=== PATIENT | male | born 1950 | race Caucasian/White ===

== ENCOUNTER 2020-10-24 18:27 | Emergency (ER) | payer MEDICARE, OTHER ==
[2020-10-24 21:45] LABS: HEMOGLOBIN 13.5 gm/dl (14.0-17.5); RED BLOOD COUNT 4.56 M/UL (4.20-5.50); WHITE BLOOD COUNT 9.5 K/UL (4.5-11.0)
[2020-10-25] MEDS ORDERED: DULCOLAX5 MG PO (00:45)
[2020-10-25] MEDS ORDERED: MIRALAX 119 GR119 GM PO (00:45)
[2020-10-25] MEDS ORDERED: CEFUROXIME500 MG PO (00:49)
== END 2020-10-25 02:17 | disposition home or self-care (01) ==
LOC: ER1 18:27
PROVIDERS: Physician Assistant
DX: N39.0 Urinary tract infection, site not specified (principal); K59.00 Constipation, unspecified; E11.9 Type 2 diabetes mellitus without complications; I10 Essential (primary) hypertension; K62.89 Other specified diseases of anus and rectum
CPT/HCPCS: 74018; 80053; 81001; 83690; 85025; 93005; 99284

== ENCOUNTER 2022-02-15 17:32 | Inpatient (IN) | payer MEDICARE, OTHER ==
[~2022-02-15] VITALS: Ht 167.6 cm; Wt 80.3 kg
[~2022-02-15 17:32] MED LIST: CEFUROXIME500 MG PO; DULCOLAX5 MG PO; MIRALAX 119 GR119 GM PO
[2022-02-15 19:03] LABS: HEMOGLOBIN 14.1 gm/dl (14.0-17.5); RED BLOOD COUNT 4.61 M/UL (4.20-5.50); WHITE BLOOD COUNT 7.5 K/UL (4.5-11.0)
[2022-02-15 19:24] LABS: BUN/CREATININE RATIO 23 (0-10)
[2022-02-16 05:19] LABS: HEMOGLOBIN 13.7 gm/dl (14.0-17.5); RED BLOOD COUNT 4.49 M/UL (4.20-5.50)
[2022-02-16 05:38] LABS: BUN/CREATININE RATIO 23 (0-10)
[2022-02-16] MEDS ORDERED: LEVOTHYROXINE100 MCG PO (09:53)
[2022-02-16] MEDS ORDERED: VITAMIN B-121000 MCG PO (09:53)
[2022-02-16] MEDS ORDERED: FARXIGA10 MG PO (09:53)
[2022-02-16] MEDS ORDERED: LORATADINE10 MG PO (09:54)
[2022-02-16] MEDS ORDERED: METFORMIN HCL500 MG PO (09:55)
[2022-02-17 05:33] LABS: HEMOGLOBIN 12.4 gm/dl (14.0-17.5); WHITE BLOOD COUNT 9.2 K/UL (4.5-11.0)
[2022-02-17 05:37] LABS: RED BLOOD COUNT 4.02 M/UL (4.20-5.50)
[2022-02-17 06:03] LABS: BUN/CREATININE RATIO 26 (0-10)
[2022-02-17 12:27] LABS: HEMOGLOBIN 13.1 gm/dl (14.0-17.5); RED BLOOD COUNT 4.22 M/UL (4.20-5.50); WHITE BLOOD COUNT 12.5 K/UL (4.5-11.0)
[2022-02-17 12:50] LABS: BUN/CREATININE RATIO 30 (0-10)
[2022-02-18 05:23] LABS: HEMOGLOBIN 11.6 gm/dl (14.0-17.5); RED BLOOD COUNT 3.78 M/UL (4.20-5.50); WHITE BLOOD COUNT 13.3 K/UL (4.5-11.0)
[2022-02-18 06:06] LABS: BUN/CREATININE RATIO 38 (0-10)
[2022-02-19 05:12] LABS: HEMOGLOBIN 10.3 gm/dl (14.0-17.5); RED BLOOD COUNT 3.42 M/UL (4.20-5.50)
[2022-02-19 05:15] LABS: WHITE BLOOD COUNT 8.7 K/UL (4.5-11.0)
[2022-02-19 05:41] LABS: BUN/CREATININE RATIO 31 (0-10)
[2022-02-20 05:22] LABS: BUN/CREATININE RATIO 40 (0-10)
[2022-02-20 06:52] LABS: HEMOGLOBIN 10.2 gm/dl (14.0-17.5); RED BLOOD COUNT 3.33 M/UL (4.20-5.50)
[2022-02-20 06:53] LABS: WHITE BLOOD COUNT 12.3 K/UL (4.5-11.0)
[2022-02-21 05:14] LABS: HEMOGLOBIN 9.7 gm/dl (14.0-17.5); RED BLOOD COUNT 3.14 M/UL (4.20-5.50); WHITE BLOOD COUNT 9.5 K/UL (4.5-11.0)
[2022-02-21 05:26] LABS: BUN/CREATININE RATIO 32 (0-10)
[2022-02-21] MEDS ORDERED: POLYETHYLENE GL17 GM PO (10:00)
[2022-02-21] MEDS ORDERED: FERROUS SULFAT325 M2 PO (10:00)
[2022-02-21] MEDS ORDERED: ELIQUIS2.5 MG PO (10:06)
[2022-02-21] MEDS ORDERED: HYDROCODON-ACE1 EAC4 PO (11:03)
[2022-02-21] MEDS ORDERED: CEFUROXIME500 MG PO (11:03)
--- NOTE | 2022-02-21 12:26 | NUR ---
02/21/22 [id number] CALLED REPORT TO FABIENNE FROM [facility]
== END 2022-02-21 17:59 | disposition home health service (06) | DRG 480 ==
LOC: ER1 17:32 → CCU 23:04 → CDU 23:04 → CCU 23:28
PROVIDERS: Orthopaedic Surgery; Preventive Medicine Occupational Medicine; ADMIT Student in an Organized Health Care Education/Training Program
PROC: B24BZZZ Ultrasonography of Heart with Aorta (ICD-10-PCS; 2022-02-17)
PROC: 0QS706Z Reposition Left Upper Femur with Intramedullary Internal Fixation Device, Open Approach (ICD-10-PCS; principal; 2022-02-17 11:20)
PROC: 3E043XZ Introduction of Vasopressor into Central Vein, Percutaneous Approach (ICD-10-PCS; 2022-02-18)
DX: S72.142A Displaced intertrochanteric fracture of left femur, initial encounter for closed fracture (principal); A41.9 Sepsis, unspecified organism; Z20.822 Contact with and (suspected) exposure to COVID-19; R65.21 Severe sepsis with septic shock; N39.0 Urinary tract infection, site not specified; S72.21XA Displaced subtrochanteric fracture of right femur, initial encounter for closed fracture; I95.9 Hypotension, unspecified; E03.9 Hypothyroidism, unspecified; B96.20 Unspecified Escherichia coli [E. coli] as the cause of diseases classified elsewhere; I25.10 Atherosclerotic heart disease of native coronary artery without angina pectoris; W01.0XXA Fall on same level from slipping, tripping and stumbling without subsequent striking against object, initial encounter; D50.9 Iron deficiency anemia, unspecified; E11.9 Type 2 diabetes mellitus without complications; Z79.4 Long term (current) use of insulin; Y92.009 Unspecified place in unspecified non-institutional (private) residence as the place of occurrence of the external cause; Z98.1 Arthrodesis status; Z82.49 Family history of ischemic heart disease and other diseases of the circulatory system; I25.2 Old myocardial infarction
CPT/HCPCS: ECHO; 0240U; 36415; 70450; 71045; 73502; 73552; 73700; 76000; 80048; 80053; 81001; 82962; 83540; 83550; 83735; 83880; 84100; 85025; 85027; 85610; 86850; 86900; 86901; 87040; 87077; 87086; 87186; 93306; 96374; 96375; 97110; 97110-GP-CQ; 97116; 97116-GP-CQ; 97161; 97166; 97530; 97530-GP-CQ; 97535; 99285; C1713; J0690; J0696; J1100; J1170; J1650; J1940; J2001; J2185; J2270; J2405; J2704; J3010

== ENCOUNTER → 2022-03-07 | Outpatient (CLI) | payer MEDICARE, OTHER ==
[~2022-03-07] MED LIST changes: +ELIQUIS2.5 MG PO; +FARXIGA10 MG PO; +FERROUS SULFAT325 M2 PO; +HYDROCODON-ACE1 EAC4 PO; +LEVOTHYROXINE100 MCG PO; +LORATADINE10 MG PO; +METFORMIN HCL500 MG PO; +POLYETHYLENE GL17 GM PO; +VITAMIN B-121000 MCG PO
== END ==
LOC: KOH-I 13:46
DX: M25.572 Pain in left ankle and joints of left foot (principal); M79.672 Pain in left foot
CPT/HCPCS: 73610; 73630

== ENCOUNTER → 2022-03-21 | Outpatient (CLI) | payer MEDICARE, OTHER | LOC: KOH-I 03-18 15:00 → US 10:45 → KOH-I 15:45 → EXRD 03-28 14:00 → KOH-I 03-28 14:00 → US 03-28 14:00 | DX: I73.9 Peripheral vascular disease, unspecified (principal) | CPT/HCPCS: 93926 ==